=== PATIENT | female | born 1965 | race African-American/Black ===

== ENCOUNTER 2017-11-13 07:11 | Outpatient (CLI) | payer BC, OTHER | END 2017-11-13 07:12 | disposition home or self-care (01) | LOC: BICMAMMO 07:11 | PROVIDERS: ATTEND Nurse Practitioner Family | DX: Z12.31 Encounter for screening mammogram for malignant neoplasm of breast (principal) | CPT/HCPCS: 77063; 77067; G0202 ==

== ENCOUNTER 2017-12-13 13:49 | Outpatient (CLI) | payer BC, OTHER ==
--- NOTE | 2017-12-13 19:28 | PET ---
RADIONUCLIDE PET SCAN WITH CT ATTENUATION CORRECTION AND SPECT IMAGING 12/13/17 HISTORY: Right lung nodules, enlarging on serial CT exams. FINDINGS: Physiologic uptake is present throughout the enteric system and along each urinary tract. Right lower lobe nodules are apparent on the nondiagnostic CT attenuation correction images. No abnormal radiotr acer uptake is demonstrated. No abnormal uptake is apparent within the mediastinum, adrenal glands, o r elsewhere. Nondiagnostic CT attenuation correction images also show postoperative changes of the stomach. IMPRESSION: No hypermetabolic activity is associated with the right lung nodules. Please consider continued perio dic CT surveillance of the chest. POS: [facility]
== END 2017-12-13 13:50 | disposition home or self-care (01) ==
LOC: PET 13:49
PROVIDERS: ATTEND Internal Medicine Sleep Medicine
DX: R91.1 Solitary pulmonary nodule (principal)
CPT/HCPCS: 78815; A9552

== ENCOUNTER 2018-01-14 16:10 | Outpatient (CLI) | payer BC, OTHER ==
--- NOTE | 2018-01-14 17:40 | RAD ---
FOUR VIEWS OF THE LEFT KNEE: Indication: Left knee pain, fall. Comparison: None. FINDINGS: No acute fracture or subluxation is evident. Enthesopathic changes are seen off the anterior patella. IMPRESSION: No acute osseous abnormality. POS: [facility]
== END 2018-01-14 16:11 | disposition home or self-care (01) ==
LOC: SCSRAD 16:10
PROVIDERS: ATTEND Nurse Practitioner Family
DX: M25.562 Pain in left knee (principal)

== ENCOUNTER 2018-01-24 10:06 | Outpatient (CLI) | payer BC, OTHER ==
--- NOTE | 2018-01-24 14:01 | MRI ---
MRI LEFT KNEE WITHOUT CONTRAST: Date: 01/24/18 HISTORY: M25.562. Left knee pain. COMPARISON: Knee radiograph dated 01/14/18. FINDINGS: Medial Meniscus: Intact. Lateral Meniscus: Intact. There is a Grade II partial tear of the anterior longitudinal fibers of the medial collateral ligamen t. The lateral collateral ligament is intact. There is also partial tearing of the meniscofemoral cor onary ligament. Muscles: Normal muscle signal and bulk. There is a small leaking popliteal cyst. Extensor Mechanism: Quadriceps tendon, patella, and patellar tendon are all intact. Cartilage: Patellofemoral compartment: Intact. Medial compartment: A few cartilage fissures of the medial tibial plateau without subchondral reacti ve edema. Lateral compartment: Intact. Posterior flexion zones are intact. IMPRESSION: 1. Grade II partial tearing of the anterior longitudinal fibers and medial collateral ligament, also with a Grade II injury of the medial meniscofemoral ligament. There is subsequent 1-2 mm medial gutt er extrusion of the medial meniscus without tear. 2. Leaking popliteal cyst. 3. Moderate joint effusion. POS: [facility]
== END 2018-01-24 10:07 | disposition home or self-care (01) ==
LOC: SCSMRI 10:06
PROVIDERS: ATTEND Orthopaedic Surgery
DX: M25.562 Pain in left knee (principal); M23.92 Unspecified internal derangement of left knee; M71.22 Synovial cyst of popliteal space [Baker], left knee; M25.462 Effusion, left knee; S83.282A Other tear of lateral meniscus, current injury, left knee, initial encounter; S83.242A Other tear of medial meniscus, current injury, left knee, initial encounter

== ENCOUNTER 2018-07-31 12:51 | Outpatient (CLI) | payer BC, OTHER ==
--- NOTE | 2018-07-31 13:28 | ULT ---
VENOUS DUPLEX SONOGRAM LEFT LOWER EXTREMITY: History: Left leg pain and edema. FINDINGS: The left common femoral vein and greater saphenous junction are evaluated along with the femoral, laith p femoral, popliteal and posterior tibial veins. There is good color and spectral doppler flow, compr ession, and augmentation. IMPRESSION: No sonographic evidence of DVT left lower extremity. POS: [facility]
== END 2018-07-31 12:52 | disposition home or self-care (01) ==
LOC: ULT 12:51
PROVIDERS: ATTEND Nurse Practitioner Family
DX: R20.0 Anesthesia of skin (principal)

== ENCOUNTER 2019-03-29 06:47 | Outpatient (CLI) | payer BC, OTHER ==
[2019-03-29 07:06] LABS: #Basophils 0.1 thou/uL (0.0-0.2); #Eosinphils 0.1 thou/uL (0.0-0.7); #Lymphocytes 2.3 thou/uL (1.20-3.40); #Monocytes 0.5 thou/uL (0.11-0.59); #Neutrophils 2.5 thou/uL (1.40-6.50); %Basophils 1.5 % (0.0-1.0); %Eosinophils 2.7 % (0.0-10.0); %Lymphocytes 41.7 % (21.0-51.0); %Monocytes 8.6 % (0.0-10.0); %Neutrophils 45.5 % (42.0-75.0); Hemoglobin 13.8 g/dL (12.0-16.0); Mean Corpuscular HGB CONC 33.8 g/dL (32.0-36.0); Mean Corpuscular Hemoglobin 30.3 pg (27.0-31.0); Mean Corpuscular Volume 89.5 fL (78.0-98.0); Mean Platelet Volume 8.1 fL (7.4-10.4); Platelet Count 211 thou/uL (130-400); RBC Distribution Width 12.2 % (11.5-14.5); Red Blood Cell (RBC) Count 4.55 mill/uL (4.20-5.40); White Blood Cell (WBC) Count 5.6 thou/uL (4.8-10.8)
[2019-03-29 07:17] LABS: ALT (SGPT) 35 U/L (8-55); AST (SGOT) 25 U/L (5-34); Albumin 2.9 g/dL (3.5-5.0); Alkaline Phosphatase 51 U/L (40-150); Anion Gap 10 mmol/L (10-20); BUN (Urea Nitrogen) 12 mg/dL (9.8-20.1); Bilirubin, Total 0.4 mg/dL (0.2-1.2); Calc. Creatinine Clearance 0 mL/min (70-130); Calcium 8.7 mg/dL (7.8-10.44); Carbon Dioxide 27 mmol/L (22-29); Cardiac Risk 3.7 (Less than 4.5); Chloride 108 mmol/L (98-107); Cholesterol 183 mg/dl (< 200 Desired); Estimated GFR-MDRD 87; Globulin 2.3 g/dL (2.4-3.5); Glucose 84 mg/dL (70-105); HDL Cholesterol 50 mg/dL (>60 Neg Risk); LDL Cholesterol, Calculated 117 mg/dL; Potassium 3.9 mmol/L (3.5-5.1); Protein, Total 5.2 g/dL (6.0-8.3); Sodium 141 mmol/L (136-145); Triglycerides 79 mg/dL (Less than 150)
== END 2019-03-29 06:48 | disposition home or self-care (01) ==
LOC: SCSLAB 06:47
PROVIDERS: ATTEND Nurse Practitioner Family
DX: E78.2 Mixed hyperlipidemia (principal); I25.10 Atherosclerotic heart disease of native coronary artery without angina pectoris
CPT/HCPCS: 36415; 80053; 80061; 85025